=== PATIENT | male | born 1935 | race Caucasian/White ===

== ENCOUNTER 2021-08-11 10:20 | Emergency (ER) | payer SELFPAY ==
[~2021-08-11] VITALS: Ht 172.7 cm; Wt 69.9 kg
[~2021-08-11 10:20] MED LIST: TAM04C; TOPI25TA43
[2021-08-11 13:35] VITALS: BP 100/62
== END 2021-08-11 15:45 | disposition home or self-care (01) ==
LOC: ER 10:24
DX: S46.912A Strain of unspecified muscle, fascia and tendon at shoulder and upper arm level, left arm, initial encounter (principal); I10 Essential (primary) hypertension; X58.XXXA Exposure to other specified factors, initial encounter; Y93.89 Activity, other specified; Y92.89 Other specified places as the place of occurrence of the external cause; Y99.8 Other external cause status
CPT/HCPCS: 73030